=== PATIENT | male | born 1980 | race Two or more races ===

== ENCOUNTER 2017-01-26 11:51 | Day surgery (SDC) | payer BC ==
[~2017-01-26] VITALS: Ht 165.1 cm; Wt 72.8 kg
[~2017-01-26 11:51] MED LIST: AZATHIOPRINE; PENTASA
[2017-01-26 13:56] VITALS: Ht 165.1 cm; Wt 72.8 kg
[2017-01-26] MEDS ORDERED: FOLIC ACID DAILY (14:08)
[2017-01-26 14:41] VITALS: BP 115/85; PULSE 72; RESP 18
[2017-01-26] MEDS ORDERED: LIDOCAINE 2% (SDV) 5 ML INJ ONE (15:23)
[2017-01-26] MEDS ORDERED: PROPOFOL 40 ML ONE (15:23)
[2017-01-26] MEDS ORDERED: PROPOFOL 20 ML ONE (16:11)
--- NOTE | 2017-01-26 16:12 | OPPN ---
Date/Time of Note Date/Time of Note DATE: 01/26/17 TIME: 16:04 Proc Note GI Procedure Date 01/26/17 Indication: other (h/o UC for surveillance) Pre-procedure Diagnosis Surveillance of ulcerative colitis Post-procedure Diagnosis Impression: Mildly active ulcerative colitis Random biopsies q10cm Moderate size internal hemorrhoids Plan: Continue present regimen follow up as scheduled] High fiber diet Annual hemoccult stool testing [Review pathology] [Surveillance colonoscopy in 5 years] Procedure Performed: Colonoscopy (With biopsies) Surgeon JADIEL HOLT MD See signature line Biomedical Engineering Director none Anesthesia Type: MAC Anesthesiologist: FLORA ARCEO MD Tourniquet Time none EBL none Transfusion required none Biopsy 1: Random biopsies every 10 cm Grafts/Implants none Tubes/Drains none Complication(s) none Disposition: home Procedure Description After informed consent, with the patient/relatives understanding the procedure, its indications and potential risks and complications, including but not limited to: Allergic reaction, bleeding, perforation, infection, and after all pertinent questions were answered to the patient's satisfaction, the patient/ relatives signed the witnessed informed consent. Following this, premedication was administered slowly IV push under careful cardiovascular and respiratory monitoring with pulse OXIM[employer]RY, automatic blood pressure, and cap maker. Once the sedative effect was achieved, the patient was placed in the left lateral decubitus position, digital rectal examination was performed. The colonoscope was then introduced and advanced under visual control throughout all segments of the colon including: the rectum, sigmoid, descending colon, splenic flexure, transverse colon, hepatic flexure, ascending colon and finally reaching the cecum which was clearly identified by transillumination, finger indentation and the ileocecal valve. The terminal ileum was entered and examined. Careful examination of the mucosa of the lower gastrointestinal tract both on insertion as well as withdrawal of the instrument disclosed the following findings: PREPARATION QUALITY: [Adequate], RECTAL EXAM: The anorectal area was visualized examined and digital rectal examination performed with the following findings: No evidence of perirectal disease, no masses. COLONIC MUCOSA: The mucosa of all segments of the colon was carefully examined and showed the following findings: There is mild erythema edema of the mucosa of the colon. The terminal ileum is normal. Random biopsies were obtained at 10 cm intervals on withdrawal the instrument. Moderate-sized internal hemorrhoids are present. Otherwise the examined mucosa appears within normal limits. There is no evidence of diverticular formation, polyps or neoplasms, vascular malformation, or any other abnormality. The instrument was then withdrawn, the patient tolerated the procedure well and was transferred out of the Endoscopy Suite awake and in good condition to continue recovery under observation. Copies To: CC: JADIEL HOLT MD, MORDO MD Jan 26, 2017 16:12
[2017-01-26 16:37] VITALS: BP 113/76; RESP 18
== END 2017-01-26 16:39 | disposition home or self-care (01) ==
LOC: GIL 11:51
PROVIDERS: ATTEND Internal Medicine Gastroenterology
DX: K51.90 Ulcerative colitis, unspecified, without complications (principal); K64.8 Other hemorrhoids
CPT/HCPCS: 45380; 88305; Z7610

== ENCOUNTER 2017-10-08 11:05 | Emergency (ER) | END 2017-10-08 14:24 | disposition home or self-care (01) ==